=== PATIENT | female | born 1985 | race Caucasian/White ===

== ENCOUNTER 2019-12-16 16:37 | Emergency (ER) | payer OTHER ==
[~2019-12-16] VITALS: Ht 160 cm; Wt 95.3 kg
[2019-12-16] MEDS ORDERED: NEURONTIN100 MG PO (17:11)
[2019-12-16] MEDS ORDERED: NEURONTIN600 MG PO (17:11)
[2019-12-16] MEDS ORDERED: TYLENOL WITH CO1 TA1 PO (19:04)
[2019-12-16] MEDS ORDERED: LIDOCAINE VISC100 ML SWISH&SPIT (19:04)
[2019-12-16] MEDS ORDERED: CLEOCIN HCL150 MG PO (19:04)
[2019-12-16] MEDS ORDERED: IBUPROFEN 600600 M1 PO (19:04)
[2019-12-16 19:11] VITALS: BP 124/70
== END 2019-12-16 19:11 | disposition home or self-care (01) ==
LOC: M.ERS 16:37
DX: K04.7 Periapical abscess without sinus (principal); K03.81 Cracked tooth; I10 Essential (primary) hypertension; J45.909 Unspecified asthma, uncomplicated; Z87.442 Personal history of urinary calculi; Z88.1 Allergy status to other antibiotic agents; Z88.6 Allergy status to analgesic agent